=== PATIENT | female | born 1955 | race Caucasian/White ===

== ENCOUNTER 2018-04-13 02:44 | Inpatient (IN) | payer MEDICARE, MEDICAID ==
--- NOTE | 2018-04-13 03:04 | ED ---
Headache - HPI Summary HPI Summary: A 63 y/o F transferred from [facility] presents with "worse HUITRON of her life" onset since noon yesterday. Associated sx: fever, chills, severe nausea. Per transfer report, pt was at [facility], and had blood work and head CT which was negative, her 1st trop was elevated and her 2nd trop was further elevated. At bedside, pt denies CP. She states having had this type HUITRON before but not in a long time. Pt lives in assisted living. - History Of Current Complaint Chief Complaint: EDChestPainROMI Stated Complaint: HEADACHE/WEAKNESS Time Seen by Provider: 04/13/18 02:52 Hx Obtained From: Patient, EMS Onset/Duration: Started days ago - noon yesterday, Still Present Initially Headache Was: "Worst Headache Ever" Timing: Constant Associated Signs And Symptoms: Nausea - severe, Fever, Other (Noted In Comments ) - pos: chills; elevated trop - Allergies/Home Medications Allergies/Adverse Reactions: Allergies Allergy/AdvReac Type Severity Reaction Status Date / Time Beta-Blockers Allergy Unknown Verified 04/13/18 03:45 (Beta-Adrenergic Bloc Reaction Details bupropion Allergy Unknown Verified 04/13/18 03:45 Reaction Details diphenhydramine Allergy Itching Verified 04/13/18 03:46 [From Benadryl] erythromycin base Allergy Unknown Verified 04/13/18 03:45 Reaction Details Estrogens Allergy Unknown Verified 04/13/18 03:45 Reaction Details fentanyl Allergy Unknown Verified 04/13/18 03:45 Reaction Details fluoxetine Allergy Unknown Verified 04/13/18 03:45 Reaction Details midazolam [From Versed] Allergy Itching Verified 04/13/18 03:45 morphine Allergy Hallucinati Verified 04/13/18 03:45 ons nortriptyline Allergy Unknown Verified 04/13/18 03:45 Reaction Details Home Medications: Home Medications Lisinopril TAB* 10 mg PO DAILY 04/13/18 [History Confirmed 04/13/18] PMH/Surg Hx/FS Hx/Imm Hx Previously Healthy: No Cardiovascular History: Reports: Hx Hypertension, Other Cardiovascular Problems/ Disorders - mitral valve prolapse Respiratory History: Reports: Hx Seasonal Allergies GI History: Reports: Hx Gastroesophageal Reflux Disease, Hx Obstructive Bowel Musculoskeletal History: Reports: Hx Fibromyalgia, Hx Scoliosis, Other Musculoskeletal History - spinal stenosis Sensory History: Reports: Hx Contacts or Glasses Opthamlomology History: Reports: Hx Contacts or Glasses Psychiatric History: Reports: Hx Anxiety, Hx Depression, Hx Post Traumatic Stress Disorder - Surgical History Surgery Procedure, Year, and Place: splenectomy, cholectomy, hysterectomy, breast implants with reversal Hx Anesthesia Reactions: No Infectious Disease History: No Infectious Disease History: Denies: Traveled Outside the [place] in Last 30 Days - Family History Known Family History: Positive: Cardiac Disease - CAD - Social History Occupation: Disabled Lives: Assisted Living Alcohol Use: None Substance Use Type: Reports: None Smoking Status (MU): Current Every Day Smoker Type: Cigarettes Review of Systems Positive: Fever, Chills Positive: Other - pos: elevated trop. Negative: Chest Pain Positive: Nausea - severe Positive: Headache All Other Systems Reviewed And Are Negative: Yes Physical Exam - Summary Physical Exam Summary: VITAL SIGNS: Reviewed. GENERAL: Patient is a well-developed and nourished FEMALE who is lying comfortable in the stretcher. Patient is not in any acute respiratory distress. HEAD AND FACE: No signs of trauma. No ecchymosis, hematomas or skull depressions. No sinus tenderness. EYES: PERRLA, EOMI x 2, No injected conjunctiva, no nystagmus. EARS: Hearing grossly intact. Ear canals and tympanic membranes are within normal limits. MOUTH: Oropharynx within normal limits. NECK: Supple, trachea is midline, no adenopathy, no JVD, no carotid bruit, no c- spine tenderness, neck with full ROM. CHEST: Symmetric, no tenderness at palpation LUNGS: Clear to auscultation bilaterally. No wheezing or crackles. CVS: Regular rate and rhythm, S1 and S2 present, no murmurs or gallops appreciated. ABDOMEN: Soft, non-tender. No signs of distention. No rebound no guarding, and no masses palpated. Bowel sounds are normal. EXTREMITIES: FROM in all major joints, no edema, no cyanosis or clubbing. NEURO: Alert and oriented x 3. No acute neurological deficits. Speech is normal and follows commands. SKIN: Dry and warm Triage Information Reviewed: Yes Vital Signs On Initial Exam: Initial Vitals Temp Pulse Resp BP Pulse Ox 99.2 F 71 18 150/92 95 04/13/18 02:48 04/13/18 02:48 04/13/18 02:48 04/13/18 02:48 04/13/18 02:48 Vital Signs Reviewed: Yes Diagnostics - Vital Signs Vital Signs Temp Pulse Resp BP Pulse Ox 04/13/18 02:48 99.2 F 71 18 150/92 95 - Laboratory Result Diagrams: 04/13/18 03:48 04/13/18 03:48 Lab Statement: Any lab studies that have been ordered have been reviewed, and results considered in the medical decision making process. - EKG 02:55 Cardiac Rate: NL - 68 bpm EKG Rhythm: Sinus Rhythm EKG Interpretation: non-specific ST in inferior leads, RBBB Headache Course/Dx - Course Course Of Treatment: Pt is a 63 y/o F transferred from [facility] presenting with "worse HUITRON of her life" onset noon yesterday. Associated sx: fever, chills, severe nausea. Blood work at [place] showed rising troponin, and nml head CT. At bedside, pt denies CP. Pt is refusing spinal tap. I informed pt of the possibility of encephalitis or meningitis and the need for a spinal tap to r/o. She is aware that missing these dx could lead to permanent disability and . - Diagnoses Provider Diagnoses: Elevated troponin, Headache - Physician Notifications Discussed Care Of Patient With: Jose Longo - hospitalist Time Discussed With Above Provider: 03:38 Instructed by Provider To: Other - Requesting repeat labs. Consulted again at 0530, he will admit. Discharge - Sign-Out/Discharge Documenting (check all that apply): Patient Departure - ADM - Discharge Plan Condition: Stable Disposition: ADMITTED TO [facility] Referrals: Keith JEAN,Berna Clark [Primary Care Provider] - - Attestation Statements Document Initiated by Scribe: Yes Documenting Scribe: Annemarie Villasenor Provider For Whom Scribe is Documenting (Include Credential): Dr. Maryan Virgen MD Scribe Attestation: I, Annemarie Villasenor, scribed for Dr. Maryan Virgen MD on 04/13/18 at 0607.
[2018-04-13] MEDS ORDERED: Metoclopramide IV* 5 MG/ML 2 ML VIAL IV SLOW PU ONE (03:22)
[2018-04-13] MEDS ORDERED: Morphine INJ* 2 MG/ML 1 ML SYRINGE (TWO MG - NEW SYRINGE VERSION) IV ONE ×2 (03:23→03:36)
[2018-04-13] MEDS ORDERED: NS 0.9% 1000 ML* 1,000 ML IV ONE (03:23)
[2018-04-13] MEDS ORDERED: diPHENhydraMINE IV* 50 MG/ML 1 ml VIAL (BENADRYL) IV ONE (03:23)
[2018-04-13 04:16] LABS: Hematocrit 34 % (35-47); Hemoglobin 11.2 g/dl (12.0-16.0); Mean Corpuscular HGB Conc 33 g/dl (31-36); Mean Corpuscular Hemoglobin 29 pg (27-31); Mean Corpuscular Volume 88 fL (80-97); Mean Platelet Volume 7.9 um3 (7.4-10.4); Platelet Count 430 10^3/ul (150-450); Red Blood Count 3.89 10^6/ul (4.00-5.40); Red Cell Distribution Width 26 % (10.5-15); White Blood Count 12.4 10^3/ul (3.5-10.8)
[2018-04-13 04:17] LABS: ABS Basophils 0 10^3/ul (0-0.2); ABS Eosinophils 0 10^3/ul (0-0.6); ABS Lymphocytes 1.7 10^3/ul (1.0-4.8); ABS Monocytes 0.8 10^3/ul (0-0.8); ABS Neutrophils 9.9 10^3/ul (1.5-7.7); ABS Nucleated RBC 0 10^3/ul
[2018-04-13 04:20] LABS: EGFR Non-African American 66.2 (>60)
[2018-04-13 05:20] LABS: Eosinophil % 0.1 % (0-6); Lymphocyte % 13.5 % (25-47); Nucleated Red Blood Cells % 0; Schistocytes 1+
--- NOTE | 2018-04-13 05:40 | HP ---
H&P (Free Text) History and Physical: PCP: Bennie Quinones MD Date/Time: 04/13/2018 0545 CC: fever, headache HPI: Mrs Shaikh is a 63YO poor historian HX as below who reports onset of headache, F/C, nausea, and sweats yesterday around noon for which she presented to [place] [facility] and was found to have an elevated troponin. She vomited prior to transport. No source was identified for her fever. She additionally reports diffuse palpitations, abdominal tenderness and has urinary frequency, but denies black, bloody stools, chest pain, SOB, cough, congestion, or other issues. PMedHx upper GI bleed 03/2018 HTN anemia fibromyalgia GERD hepatitis A duodenal ulcer neurogenic bladder PTSD RBBB spinal stenosis splenic rupture Ambulatory Orders ALPRAZolam TAB* 1 mg PO QID 04/04/16 Acetaminophen TAB* [Tylenol TAB*] 325 mg PO Q6HR PRN MDD 1000 mg 04/04/16 Baclofen 20 mg PO BID 04/04/16 Fluticasone NASAL SPRAY 50MCG* 50 mg BOTH NARES BID 04/04/16 Hydrocodone/Acetamin 10/325(NF 10 mg PO Q6HR PRN 04/04/16 Potassium Chlor TAB 20 MEQ* 20 meq PO BID 04/04/16 Protonix 40 mg PO DAILY 04/04/16 Sertraline* 100 mg PO DAILY 04/04/16 Zonisamide 300 mg PO BID 04/04/16 Docusate CAP* [Colace Cap*] 100 mg PO BID PRN #60 cap 04/09/16 Polyethylene Glycol 3350* [Miralax*] 17 gm PO DAILY PRN #30 packet 04/09/16 Senna TAB* [Senokot TAB*] 2 tab PO BEDTIME PRN #60 tab 04/09/16 Lisinopril TAB* 10 mg PO DAILY 04/13/18 Allergies Beta-Blockers (Beta-Adrenergic Bloc Allergy (Verified 04/13/18 03:45) Unknown Reaction Details bupropion Allergy (Verified 04/13/18 03:45) Unknown Reaction Details diphenhydramine [From Benadryl] Allergy (Verified 04/13/18 03:46) Itching erythromycin base Allergy (Verified 04/13/18 03:45) Unknown Reaction Details Estrogens Allergy (Verified 04/13/18 03:45) Unknown Reaction Details fentanyl Allergy (Verified 04/13/18 03:45) Unknown Reaction Details fluoxetine Allergy (Verified 04/13/18 03:45) Unknown Reaction Details midazolam [From Versed] Allergy (Verified 04/13/18 03:45) Itching morphine Allergy (Verified 04/13/18 03:45) Hallucinations nortriptyline Allergy (Verified 04/13/18 03:45) Unknown Reaction Details PSurgHx breast augmentation cholecystectomy hysterectomy & oophorectomy sinus surgery prolapsed rectum repair breast implant removal 2nd rupture appendectomy splenectomy SocHx: quit smoking 2 years ago with ~15PYHX, no alcohol or recreational drugs; lives at [facility]; full code status FamHx: Mother passed at 54 2nd CAD/MA. Father passed at 32 2nd pancreatic CA. One sister has CAD/MA x3. Another sister is reportedly healthy as is her brother. ROS: as above, otherwise reviewed and all were negative vitals: Vital Signs Temp 38.2 C 04/13/18 05:53 Pulse 78 04/13/18 05:50 Resp 14 04/13/18 05:50 BP 153/96 04/13/18 05:50 Pulse Ox 94 04/13/18 05:50 Constitutional: NAD, normally developed, thin white female appearing much older than her reported age HEENM: atraumatic; sclera/conjunctiva: anicteric/clear; hearing: clinically intact; oropharynx: clear, mucosa moist Neck: soft tissue: non-tender, no nuchal rigidity; thyroid: normal Pulmonary: clear to auscultation bilaterally, good aeration, no accessory muscle use CV: RR/RR, normal S1S2, no carotid bruit, no jugular venous distention, 2+ B DP/ PT, no edema Abdominal: soft, non-distended, moderately diffusely tender, no rebound/guarding /rigidity, normoactive bowel sounds, no hepatosplenomegaly or masses, no costovertebral angle tenderness Musculoskeletal: general: grossly intact Integumental: normal appearance and texture Psychiatric orientation: AA&O to PPS affect: calm mood: cooperative eye contact: fair content: seemingly reliable responses: timely insight: fair to good Testing: Lab Results 04/13/18 04/13/18 04/13/18 Range/Units 03:48 03:48 03:48 WBC 12.4 H (3.5-10.8) 10^3/ul RBC 3.89 L (4.00-5.40) 10^6/ul Hgb 11.2 L (12.0-16.0) g/dl Hct 34 L (35-47) % MCV 88 (80-97) fL MCH 29 (27-31) pg MCHC 33 (31-36) g/dl RDW 26 H (10.5-15) % Plt Count 430 (150-450) 10^3/ul MPV 7.9 (7.4-10.4) um3 Neut % (Auto) 79.8 (38-83) % Lymph % (Auto) 13.5 L (25-47) % [place] % (Auto) 6.3 (0-7) % Eos % (Auto) 0.1 (0-6) % Baso % (Auto) 0.3 (0-2) % Absolute Neuts (auto) 9.9 H (1.5-7.7) 10^3/ul Absolute Lymphs (auto) 1.7 (1.0-4.8) 10^3/ul Absolute Monos (auto) 0.8 (0-0.8) 10^3/ul Absolute Eos (auto) 0 (0-0.6) 10^3/ul Absolute Basos (auto) 0 (0-0.2) 10^3/ul Absolute Nucleated RBC 0 10^3/ul Nucleated RBC % 0 Stomatocytes 1+ Schistocytes 1+ Hem Pathologist Commnt Pending Sodium 137 (135-145) mmol/L Potassium 3.4 L (3.5-5.0) mmol/L Chloride 103 (101-111) mmol/L Carbon Dioxide 26 (22-32) mmol/L Anion Gap 8 (2-11) mmol/L BUN 16 (6-24) mg/dL Creatinine 0.86 (0.51-0.95) mg/dL Est GFR ( Amer) 80.1 (>60) Est GFR (Non-Af Amer) 66.2 (>60) BUN/Creatinine Ratio 18.6 (8-20) Glucose 110 H (70-100) mg/dL Lactic Acid 1.1 (0.5-2.0) mmol/L Calcium 9.3 (8.6-10.3) mg/dL Magnesium 1.9 (1.9-2.7) mg/dL Total Bilirubin 0.30 (0.2-1.0) mg/dL AST 18 (13-39) U/L ALT 9 (7-52) U/L Alkaline Phosphatase 75 (34-104) U/L Troponin I 0.07 H* (<0.04) ng/mL Total Protein 7.6 (6.4-8.9) g/dL Albumin 4.0 (3.2-5.2) g/dL Globulin 3.6 (2-4) g/dL Albumin/Globulin Ratio 1.1 (1-3) ECG, personally reviewed: NSR rate 68, no ischemia CXR, personally reviewed: ordered, pending Impression: 63F presents with SIRS (fever, tachypnea, & leukocytosis) suspected 2nd abdominal source, work up in progress DIAGNOSIS & PLAN Primary SIRS (fever, tachypnea, & leukocytosis) suspected 2nd abdominal source : obtain CT abd/pel WO : UA at [place] [facility] was negative : blood CXs : empiric ciprofloxacin & metronidazole : IVFs : supportive care Admission Rational: Inpatient as without the above interventions the risk of impending adverse outcome is unacceptably high; inappropriate for the outpatient setting DVTp: heparin SQ Code Status: full HCP: daughter, Bette Gunn
[2018-04-13] MEDS ORDERED: Melatonin 3 MG TAB PO PRN (06:01)
[2018-04-13] MEDS ORDERED: Acetaminophen TAB* 325 MG PO PRN (06:01)
[2018-04-13] MEDS ORDERED: Ondansetron ODT TAB* 4 MG PO PRN (06:02)
[2018-04-13] MEDS ORDERED: Polyethylene Glycol 3350* 17 GM PACKET PO PRN (06:07)
[2018-04-13] MEDS ORDERED: Hydrocodone/Acetamin 10/325 1 TAB PO PRN ×2 (06:07→08:43)
[2018-04-13] MEDS ORDERED: Senna TAB PO PRN (06:07)
[2018-04-13] MEDS ORDERED: NS 0.9% 1000 ML* 1,000 ML IV SCH (06:15)
[2018-04-13 06:47] LABS: ABS Basophils 0.1 10^3/ul (0-0.2); ABS Eosinophils 0 10^3/ul (0-0.6); ABS Lymphocytes 1.5 10^3/ul (1.0-4.8); ABS Monocytes 0.7 10^3/ul (0-0.8); ABS Neutrophils 12.6 10^3/ul (1.5-7.7); ABS Nucleated RBC 0 10^3/ul; Hematocrit 33 % (35-47); Hemoglobin 10.7 g/dl (12.0-16.0); Mean Corpuscular HGB Conc 33 g/dl (31-36); Mean Corpuscular Hemoglobin 28 pg (27-31); Mean Corpuscular Volume 86 fL (80-97); Mean Platelet Volume 7.8 um3 (7.4-10.4); Platelet Count 400 10^3/ul (150-450); Red Blood Count 3.83 10^6/ul (4.00-5.40); Red Cell Distribution Width 25 % (10.5-15); White Blood Count 14.9 10^3/ul (3.5-10.8)
--- NOTE | 2018-04-13 06:52 | RAD ---
EXAM: CT Abdomen and Pelvis Without Intravenous Contrast CLINICAL HISTORY: 63 years old, female; Pain; Abdominal pain; Generalized; Additional info: Abdominal pain, sirs TECHNIQUE: Axial computed tomography images of the abdomen and pelvis without intravenous contrast. All CT scans at this facility use at least one of these dose optimization techniques: automated exposure control; mA and/or kV adjustment per patient size (includes targeted exams where dose is matched to clinical indication); or iterative reconstruction. COMPARISON: CT ABD&PELV W/CONTRAST 04/03/2016 10:54 AM FINDINGS: Lung bases: There is elevation of the right hemidiaphragm. Minimal infiltrate or atelectatic changes are seen at the right lung base. Heart: Coronary artery calcifications are noted. Mediastinum: There is a small hiatus hernia noted. ABDOMEN: Liver: See below. Gallbladder and bile ducts: The patient is status post cholecystectomy. Small amount of air is identified within a few of the biliary ducts and the left lobe of the liver. Pancreas: The pancreas is not well-visualized. Spleen: The spleen is not definitely identified. Adrenals: Unremarkable. No mass. Kidneys and ureters: There is a nonobstructing 2 mm calculus in the lower pole of the right kidney. Stomach and bowel: Unremarkable. No obstruction. No mucosal thickening. PELVIS: Appendix: The appendix is not clearly delineated. Bladder: Unremarkable. No stones. Reproductive: The patient is status post hysterectomy. ABDOMEN and PELVIS: Intraperitoneal space: Unremarkable. No free air. No significant fluid collection. Bones/joints: There is dextroscoliosis of the lumbar spine, unchanged from the previous study. There is bilateral spondylolysis involving L5. Multilevel degenerative disc disease is noted. No acute fracture. No dislocation. Soft tissues: Unremarkable. Vasculature: Arteriosclerotic changes are identified. No abdominal aortic aneurysm. Lymph nodes: Unremarkable. No enlarged lymph nodes. IMPRESSION: Dextroscoliosis of the lumbar spine with degenerative change. Minimal infiltrate or atelectatic changes in the right lower lobe. Coronary artery calcifications. Cholecystectomy. Pneumobilia. Nonobstructing right renal calculus. Small hiatus hernia. The spleen is not definitely identified. Hysterectomy.
[2018-04-13 07:39] LABS: Eosinophil % 0 % (0-6); Lymphocyte % 9.9 % (25-47); Nucleated Red Blood Cells % 0
[2018-04-13 08:12] LABS: INR 1.07 (0.77-1.02)
[2018-04-13] MEDS: Ciprofloxacin IV(*) 400 MG in D5W 250 ML BAG* 160 ML IVPB SCH ×2 (08:24→20:56)
[2018-04-13] MEDS: Lisinopril TAB* 10 MG PO SCH (08:45)
[2018-04-13] MEDS: Baclofen TAB* 20 MG PO SCH ×2 (08:47→20:56)
[2018-04-13] MEDS: ALPRAZolam TAB* 0.5 MG PO SCH ×4 (08:48→20:44)
[2018-04-13] MEDS ORDERED: Potassium Chlor TAB* 20 MEQ TAB.ER PO SCH (09:00)
[2018-04-13] MEDS ORDERED: PROTONIX 40 MG PO SCH (09:00)
[2018-04-13] MEDS: metroNIDAZOLE IV 500 MG/100ML* 500 MG/100 ML BAG IVPB SCH ×2 (09:52→15:47)
[2018-04-13] MEDS: NS 0.9% 1000 ML* 1,000 ML IV SCH ×2 (09:53→12:23)
--- NOTE | 2018-04-13 09:58 | PN ---
Subjective Date of Service: 04/13/18 Interval History: Headache persists, started noon 04/12. Abd pain since admission to [facility] ; patient states she got 3 U blood there but never had EGD. Too nauseated to eat. No relief with ondansetron ODT. Objective Active Medications: Alprazolam (Xanax Tab*) 1 mg PO QID [facility] Last Admin: 04/13/18 08:48 Dose: Not Given Baclofen (Lioresal Tab*) 20 mg PO BID [facility] Last Admin: 04/13/18 08:47 Dose: 20 mg Heparin Sodium (Porcine) (Heparin Vial(*)) 5,000 units SUBCUT Q8HR [facility] Ciprofloxacin 400 mg/ Dextrose 200 mls @ 200 mls/hr IVPB Q12H [facility] Last Admin: 04/13/18 08:24 Dose: 200 mls/hr Metronidazole/Sodium Chloride (Flagyl 500 Mg Ivpb*) 500 mg in 100 mls @ 100 mls /hr IVPB Q8H [facility] Sodium Chloride (Ns 0.9% 1000 Ml*) 1,000 mls @ 0 mls/hr IV WIDE OPEN [facility] Stop: 04/14/18 06:16 Potassium Chloride/Dextrose (D5w 1/2 Ns Kcl 20 Meq 1000 Ml*) 1,000 mls @ 100 mls/hr IV PER RATE [facility] Potassium Chloride/Dextrose (D5w 1/2 Ns Kcl 20 Meq 1000 Ml*) 1,000 mls @ 100 mls/hr IV PER RATE [facility] Lisinopril (Prinivil Tab*) 10 mg PO DAILY [facility] Last Admin: 04/13/18 08:45 Dose: 10 mg Omeprazole (Prilosec Cap*) 20 mg PO DAILY@0600 [facility] Oxycodone HCl (Roxycodone Tab*) 5 mg PO Q4H PRN PRN Reason: PAIN Polyethylene Glycol/Electrolytes (Miralax*) 17 gm PO DAILY PRN PRN Reason: CONSTIPATION Senna (Senokot Tab*) 2 tab PO BEDTIME PRN PRN Reason: CONSTIPATION Sertraline HCl (Zoloft*) 100 mg PO DAILY [facility] Trimethobenzamide HCl (Tigan Cap*) 300 mg PO QID [facility] Zonisamide (Zonegran (Nf)) 300 mg PO BID [facility] Vital Signs - 8 hr 04/13/18 04/13/18 04/13/18 02:48 02:50 02:51 Temperature 99.2 F Pulse Rate 71 68 Respiratory 18 Rate Blood Pressure 150/92 150/92 (mmHg) O2 Sat by Pulse 95 93 Oximetry 04/13/18 04/13/18 04/13/18 03:00 03:20 03:36 Temperature Pulse Rate 79 66 Respiratory 10 9 18 Rate Blood Pressure 145/86 (mmHg) O2 Sat by Pulse 94 94 Oximetry 04/13/18 04/13/18 04/13/18 03:37 03:50 04:00 Temperature Pulse Rate 67 71 Respiratory 18 17 21 Rate Blood Pressure 163/91 (mmHg) O2 Sat by Pulse 98 96 Oximetry 04/13/18 04/13/18 04/13/18 04:20 04:43 04:50 Temperature Pulse Rate 75 76 76 Respiratory 23 23 24 Rate Blood Pressure 178/101 172/107 165/95 (mmHg) O2 Sat by Pulse 93 94 93 Oximetry 04/13/18 04/13/18 04/13/18 05:00 05:20 05:50 Temperature Pulse Rate 79 75 78 Respiratory 24 24 14 Rate Blood Pressure 150/87 153/96 (mmHg) O2 Sat by Pulse 91 91 94 Oximetry 04/13/18 04/13/18 04/13/18 05:53 06:00 06:59 Temperature 100.8 F 100.0 F Pulse Rate 76 84 Respiratory 21 18 Rate Blood Pressure 109/64 (mmHg) O2 Sat by Pulse 91 98 Oximetry 04/13/18 04/13/18 07:07 08:48 Temperature 100.6 F Pulse Rate 74 Respiratory 22 16 Rate Blood Pressure 141/81 (mmHg) O2 Sat by Pulse 94 Oximetry Oxygen Devices in Use Now: None Appearance: Alert, supine in bed. In fair spirits. Looks comfortable at rest. Eyes: No Scleral Icterus Respiratory: Symmetrical Chest Expansion and Respiratory Effort, Clear to Auscultation, Clear to Percussion Cardiovascular: NL Sounds; No Murmurs; No JVD, RRR, No Edema Abdominal: No Hepatosplenomegaly, - - Soft, nl BS, mod diffusely tender. No masses or organomegaly. Extremities: No Edema, No Clubbing, Cyanosis, - Skin: No Rash or Ulcers, No Nodules or Sclerosis, - - Skin both lower legs wrinkled Neurological: Alert and Oriented x 3, NL Sensation Result Diagrams: 04/13/18 06:18 04/13/18 03:48 Assess/Plan/Problems-Billing Assessment: - Patient Problems (1) Fever Current Visit: Yes Status: Acute Code(s): R50.9 - FEVER, UNSPECIFIED SNOMED Code(s): 884654127 Comment: Leukocytosis, high CRP recently. Continue cipro/metro. Blood C&S PRN T>=101. Addon CRP pending. (2) HTN (hypertension) Current Visit: No Status: Chronic Code(s): I10 - ESSENTIAL (PRIMARY) HYPERTENSION SNOMED Code(s): 72922669 Comment: Continue lisinopril. (3) Anemia Current Visit: Yes Status: Acute Code(s): D64.9 - ANEMIA, UNSPECIFIED SNOMED Code(s): 401219659 Comment: Records requested from [facility]. Note nl iron studies, B12, folate 2017. (4) Spinal stenosis Current Visit: Yes Status: Acute Code(s): M48.00 - SPINAL STENOSIS, SITE UNSPECIFIED SNOMED Code(s): 66918050 Comment: Oxycodone prn. Avoid APAP while evaluating her fever. (5) Nausea Current Visit: Yes Status: Acute Code(s): R11.0 - NAUSEA SNOMED Code(s): 122892170 Comment: Schedule trimethobenzamide ordered.
[2018-04-13] MEDS ORDERED: D5W 1/2 NS KCl 20 Meq 1000 ML* 1,000 ML IV SCH ×2 (10:00)
[2018-04-13] MEDS: oxyCODONE TAB* 5 MG TAB PO PRN ×3 (10:35→22:22)
[2018-04-13] MEDS: Trimethobenzamide CAP* 300 MG PO SCH ×4 (10:36→20:57)
[2018-04-13] MEDS: CMC:Zonisamide (NF) 50 MG CAP PO SCH ×2 (10:37→20:56)
[2018-04-13] MEDS: Sertraline* 100 MG TAB PO SCH (10:39)
[2018-04-13] MEDS: Acetaminophen TAB* 325 MG PO PRN ×2 (13:18→22:21)
[2018-04-13] MEDS: D5W 1/2 NS KCl 20 Meq 1000 ML* 1,000 ML IV SCH (13:38)
[2018-04-14] MEDS: metroNIDAZOLE IV 500 MG/100ML* 500 MG/100 ML BAG IVPB SCH ×3 (00:45→17:49)
[2018-04-14] MEDS: Omeprazole CAP* 20 MG PO SCH (05:21)
[2018-04-14] MEDS: Heparin VIAL(*) 5000 UNITS/ML VIAL (FIVE THOUSAND) SUBCUT SCH ×3 (05:21→21:46)
[2018-04-14] MEDS: Ciprofloxacin IV(*) 400 MG in D5W 250 ML BAG* 160 ML IVPB SCH ×2 (07:25→21:46)
[2018-04-14] MEDS: oxyCODONE TAB* 5 MG TAB PO PRN ×3 (07:31→21:46)
[2018-04-14] MEDS: Trimethobenzamide CAP* 300 MG PO SCH ×4 (08:32→21:43)
[2018-04-14] MEDS: Baclofen TAB* 20 MG PO SCH ×2 (08:33→21:42)
[2018-04-14] MEDS: Sertraline* 100 MG TAB PO SCH (08:33)
[2018-04-14] MEDS: Lisinopril TAB* 10 MG PO SCH (08:34)
[2018-04-14] MEDS: ALPRAZolam TAB* 0.5 MG PO SCH ×3 (08:35→17:55)
[2018-04-14] MEDS: CMC:Zonisamide (NF) 50 MG CAP PO SCH ×2 (08:35→21:45)
--- NOTE | 2018-04-14 12:36 | PN ---
Subjective Date of Service: 04/14/18 Interval History: Headache improved today. Patient reports having much drainage from her sinuses last evening. C/O abdominal pain, nausea but also requests a meal. Objective Active Medications: Acetaminophen (Tylenol Tab*) 650 mg PO Q4H PRN PRN Reason: PAIN Last Admin: 04/13/18 22:21 Dose: 650 mg Alprazolam (Xanax Tab*) 1 mg PO QID [facility] Last Admin: 04/14/18 12:13 Dose: Not Given Baclofen (Lioresal Tab*) 20 mg PO BID [facility] Last Admin: 04/14/18 08:33 Dose: 20 mg Heparin Sodium (Porcine) (Heparin Vial(*)) 5,000 units SUBCUT Q8HR [facility] Last Admin: 04/14/18 05:21 Dose: Not Given Ciprofloxacin 400 mg/ Dextrose 200 mls @ 200 mls/hr IVPB Q12H [facility] Last Admin: 04/14/18 07:25 Dose: 200 mls/hr Metronidazole/Sodium Chloride (Flagyl 500 Mg Ivpb*) 500 mg in 100 mls @ 100 mls /hr IVPB Q8H [facility] Last Admin: 04/14/18 08:29 Dose: 100 mls/hr Potassium Chloride/Dextrose (D5w 1/2 Ns Kcl 20 Meq 1000 Ml*) 1,000 mls @ 100 mls/hr IV PER RATE [facility] Last Admin: 04/13/18 13:38 Dose: 100 mls/hr Lisinopril (Prinivil Tab*) 10 mg PO DAILY [facility] Last Admin: 04/14/18 08:34 Dose: 10 mg Omeprazole (Prilosec Cap*) 20 mg PO DAILY@0600 [facility] Last Admin: 04/14/18 05:21 Dose: 20 mg Ondansetron HCl (Zofran Odt Tab*) 4 mg PO Q6H PRN PRN Reason: n/v Oxycodone HCl (Roxycodone Tab*) 5 mg PO Q4H PRN PRN Reason: PAIN Last Admin: 04/14/18 07:31 Dose: 5 mg Polyethylene Glycol/Electrolytes (Miralax*) 17 gm PO DAILY PRN PRN Reason: CONSTIPATION Senna (Senokot Tab*) 2 tab PO BEDTIME PRN PRN Reason: CONSTIPATION Sertraline HCl (Zoloft*) 100 mg PO DAILY [facility] Last Admin: 04/14/18 08:33 Dose: 100 mg Trimethobenzamide HCl (Tigan Cap*) 300 mg PO QID [facility] Last Admin: 04/14/18 12:14 Dose: 300 mg Zonisamide (Zonegran (Nf)) 300 mg PO BID [facility] Last Admin: 04/14/18 08:35 Dose: 300 mg Vital Signs - 8 hr 04/14/18 04/14/18 04/14/18 07:31 07:53 08:00 Temperature 98.3 F Pulse Rate 62 Respiratory 16 18 18 Rate Blood Pressure 137/72 (mmHg) O2 Sat by Pulse 95 Oximetry 04/14/18 04/14/18 10:04 10:56 Temperature 97.9 F Pulse Rate 59 Respiratory 16 20 Rate Blood Pressure 129/69 (mmHg) O2 Sat by Pulse 96 Oximetry Oxygen Devices in Use Now: None Appearance: Alert, supine in bed. In fair spirits. Looks comfortable. Eyes: No Scleral Icterus Abdominal: No Hepatosplenomegaly, - - Mild diffuse abdominal tenderness. Abd scaphoid. No mass. Nl BS. Extremities: No Edema, No Clubbing, Cyanosis, - Skin: No Rash or Ulcers, No Nodules or Sclerosis, - - both lower legs wrinkled. Neurological: Alert and Oriented x 3, NL Sensation Result Diagrams: 04/13/18 06:18 04/13/18 03:48 Microbiology and Other Data: Microbiology 04/13/18 06:47 Aerobic Blood Culture - Preliminary Blood Venous No Growth Day 1 Anaerobic Blood Culture - Preliminary No Growth Day 1 Assess/Plan/Problems-Billing Assessment: - Patient Problems (1) Fever Current Visit: Yes Status: Acute Code(s): R50.9 - FEVER, UNSPECIFIED SNOMED Code(s): 319425308 Comment: Leukocytosis, high CRP recently. Continue cipro/metro. Blood C&S x 1 on 04/13 no growth day 1. Addon CRP 85 on 04/13, down from 213 on 04/03. Repeat CBC, CRP 04/15. ?? sinusitis. Note CT brain 04/12 at [place] was unremarkable, including the visulaized sinuses. (2) HTN (hypertension) Current Visit: No Status: Chronic Code(s): I10 - ESSENTIAL (PRIMARY) HYPERTENSION SNOMED Code(s): 72623534 Comment: Continue lisinopril. (3) Anemia Current Visit: Yes Status: Acute Code(s): D64.9 - ANEMIA, UNSPECIFIED SNOMED Code(s): 823648210 Comment: Records received from [facility]. Note nl iron studies, B12, folate 2017. EGD requested. Pt had barium swallow at [facility], 2 U PC's. (4) Spinal stenosis Current Visit: Yes Status: Acute Code(s): M48.00 - SPINAL STENOSIS, SITE UNSPECIFIED SNOMED Code(s): 24770615 Comment: Oxycodone prn. Avoid APAP while evaluating her fever. (5) Nausea Current Visit: Yes Status: Acute Code(s): R11.0 - NAUSEA SNOMED Code(s): 224406220 Comment: Continue scheduled trimethobenzamide.
[2018-04-14] MEDS ORDERED: Meperidine Carpuject* 75 MG/ML CARPUJECT SYRINGE IV ONE ×2 (14:00→16:00)
[2018-04-14] MEDS ORDERED: Midazolam* 1 MG/ML 10 ML VIAL (10 MG) ONE (14:41)
[2018-04-14] MEDS ORDERED: fentaNYL* 50 MCG/ML 2 ML VIAL (100 MCG VIAL) ONE (14:41)
--- NOTE | 2018-04-14 16:02 | ECHO ---
Patient: SYDNEY ZIEGLER [facility] Rec#: [id number] : 1955 Date: 04/14/2018 Age: 63y Height: 157 cm / 61.8 in Weight: 46 kg / 101.4 lbs Sex: F BSA: 1.4 Room#: [facility] Admit Date#: 04/13/2018 Type: Inpatient Referring: Aki Galarza MD Reading: Alexis Medina MD Agent Broker: Tete Schwab RN RDCS CC: Berna aPrker MD Transthoracic Echocardiogram Indication: Elevated troponin level, sepsis BP: 116/66 HR: 59 Rhythm: Bradycardia Findings History: HTN, RBBB, former smoker, UGI bleed, anemia, scoliosis, spinal stenosis Technical Comments: The study quality is fair. The study is technically limited due to the patient's smoking history. Left Ventricle: The left ventricular chamber size is normal. Mild concentric left ventricular hypertrophy is observed. There is increased basal septal hypertrophy noted without evidence of an increased gradient across the left ventricular outflow tract. Global left ventricular wall motion and contractility are within normal limits. There is normal left ventricular systolic function. The estimated ejection fraction is 60-65%. There is a left ventricular septal wall motion abnormality observed, possibly due to the presence of a right bundle branch block. There is no consistent Doppler evidence of clinically significant diastolic dysfunction. Left Atrium: The left atrial chamber size is normal. Right Ventricle: The right ventricular chamber size and systolic function are within normal limits. Right Atrium: The right atrium is mildly dilated. Aortic Valve: The aortic valve is trileaflet. The aortic valve leaflets are mildly thickened. There is aortic annular calcification. There is no evidence of aortic regurgitation. There is no evidence of aortic stenosis. Mitral Valve: The mitral valve leaflets are mildly thickened. There is a trace of mitral regurgitation. There is no evidence of mitral stenosis. Tricuspid Valve: The tricuspid valve leaflets are normal. There is trace tricuspid regurgitation. Unable to estimate the right ventricular systolic pressure. There is no tricuspid stenosis. Pulmonic Valve: The pulmonic valve appears normal in structure and function. There is mild to moderate pulmonic regurgitation. There is no pulmonic stenosis. Pericardium: There is no significant pericardial effusion. Aorta: There is mild dilatation of the ascending aorta. There is no dilatation of the aortic arch. There is no dilation of the aortic root. Pulmonary Artery: The main pulmonary artery is not well visualized. Venous: The inferior vena cava appears normal in size. There is a greater than 50% respiratory change in the inferior vena cava dimension. Summary: There are changes noted when compared to the previous study done on 04/04/2016, there is increase in PI from trace then. Asneding aorta was not visualized then. Conclusions The left ventricular chamber size is normal. Mild concentric left ventricular hypertrophy is observed. There is increased basal septal hypertrophy noted without evidence of an increased gradient across the left ventricular outflow tract. The estimated ejection fraction is 60-65%. There is a left ventricular septal wall motion abnormality observed, possibly due to the presence of a right bundle branch block. There is no consistent Doppler evidence of clinically significant diastolic dysfunction. The right atrium is mildly dilated. There is a trace of mitral regurgitation. There is trace tricuspid regurgitation. There is mild to moderate pulmonic regurgitation. There is mild dilatation of the ascending aorta. There are changes noted when compared to the previous study done on 04/04/2016, there is increase in PI from trace then. Asneding aorta was not visualized then. Measurements Name Value Normal Range RVIDd (AP) 2D 2.8 cm (0.9 - 2.6) RAd ISD 4CH 5.2 cm (3.4 - 4.9) RA (A4C)W 3.7 cm (2.9 - 4.6) IVSd (2D) 1.2 cm (0.6 - 1) LVPWd (2D) 1.2 cm (0.6 - 1) LVIDd (2D) 4.5 cm (3.6 - 5.4) LVIDs (2D) 3.1 cm - LV FS (2D) 31 % (25 - 45) Aortic Annulus 2 cm (1.4 - 2.6) Ao root diameter (2D) 3.5 cm (2.1 - 3.5) Ascending Ao 3.8 cm (2.1 - 3.4) Aortic arch 2.5 cm (1.8 - 3.4) LA dimension (AP) 2D 3.1 cm (2.3 - 3.8) LAd ISD 4CH 4.6 cm (2.9 - 5.3) LA ISD 4CH W 4.1 cm (2.5 - 4.5) Name Value Normal Range LA ESV SP 4CH (A/L) 40 ml - LA ESV SP 2CH (A/L) 34 ml - LA ESV BP (A/L) 40 ml - LA ESV BP (A/L) index 28 ml/m2 - LA ESV SP 4CH (MOD) 36 ml - LA ESV SP 2CH (MOD) 31 ml - Name Value Normal Range MV E-wave Vmax 0.66 m/sec - MV deceleration time 278 msec - MV A-wave Vmax 0.82 m/sec - MV E:A ratio 0.8 ratio - LV septal e' Vmax 0.08 m/sec - LV lateral e' Vmax 0.07 m/sec - LV E:e' septal ratio 8.3 ratio - LV E:e' lateral ratio 9.4 ratio - Name Value Normal Range AV Vmax 1.5 m/sec - AV VTI 34 cm - AV peak gradient 9.5 mmHg - AV mean gradient 5.7 mmHg - LVOT Vmax 1.1 m/sec - LVOT VTI 22.7 cm - LVOT peak gradient 5 mmHg - LVOT mean gradient 3 mmHg - HERMINIA Vmax 0.53 m/sec - Name Value Normal Range IVC diameter 1.8 cm - Name Value Normal Range PV Vmax 0.84 m/sec -
--- NOTE | 2018-04-14 21:34 | CONS ---
GASTROENTEROLOGY CONSULT: DATE OF CONSULT: 04/14/18 CONSULTING PHYSICIANS: Dmitri Galarza MD; Berna Parker MD, [place]. REASON FOR CONSULT: Burning upper abdominal pain with a history of microcytic anemia diagnosed at [facility], 02/02/18, with hemoglobin 6.1, MCV 69 at that time. HISTORY OF PRESENT ILLNESS: This 63-year-old woman came to the hospital yesterday complaining of a headache. There was question of fever and her white count was up and a severe infection was considered. Clinical exam and CT scan did not document a source and she has remained afebrile. She has been covered with Cipro and Flagyl. Complaints of headache have faded, but she does continue to complain of epigastric pain. She has a long history of headaches and she was admitted to [facility] on 02/02 with headache. It was felt to be migrainous in pattern. She was found to be anemic and was transfused 3 units of blood, her first ever. After 2-1/2 weeks, she was transferred to [facility] and was not transferred back to her extended care facility ([facility]) until 03/06/18. While at [facility], she apparently had no cardiac damage demonstrated by noninvasive means, no sign of acute or chronic GI bleeding as she had a negative upper GI barium study and 2 stools for occult blood were said to be negative. She is a slow historian, but is able to enumerate a fair number of important facts. She says at [facility], she normally eats a regular diet. She had been on Nexium in the remote past and recalls being switched to Protonix and then Prilosec. At discharge in April 2016 from this hospital, she was on Protonix 40 mg and on admission yesterday was still listed , though there is some uncertainty. She denies taking any NSAIDs and multiple trade names were mentioned. She is on iron ever since the January 2018 admission and says she had never been on iron before. She says several prior colonoscopies have been negative, most recently around 2007 in [place]. PAST MEDICAL HISTORY: 1. Fibromyalgia. 2. Chronic pain syndrome. 3. PTSD - details not elicited. 4. Neurogenic bladder. 5. Right bundle branch block. 6. Spinal stenosis. 7. Status post splenectomy. 8. Status post cholecystectomy and repeated ERCPs done in [place] and no details available. 9. History of breast augmentation. 10. History of hysterectomy and oophorectomy. 11. Appendectomy - incidental. 12. Breast implant removals. 13. Prolapsed rectal repair. 14. Chronic migraine headaches. MEDICATIONS: Outpatient meds include: 1. Baclofen. 2. Zonisamide. 3. Hydrocodone. 4. Alprazolam. 5. Sertraline. 6. Protonix. 7. Lisinopril. 8. MiraLAX. ALLERGIES: She specifies that although MIDAZOLAM she feels causes itching, she actually finds it quite effective and is willing to take it. She has had it numerous times since first wondering about the itching. There has never been any bronchospasm or hives. In the past, Demerol and Dilaudid have been effective for her. There are about 10 allergies and none she can reference as causing any cardiorespiratory collapse. SOCIAL HISTORY: She has been in [facility] because of a variety of chronic issues since 2013. She has 4 daughters, 3 in [place] and 1 living in [place] who she sees about twice a year. 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 REVIEW OF SYSTEMS: No history of palpitations, syncope, NE, hemoptysis, TB, lung mass, acute hepatitis, chronic pancreatic disease. Her last colonoscopy was in 2007. No history of psoriasis or hives. DIAGNOSTIC STUDIES/LAB DATA: On admission here, hemoglobin 11.2, hematocrit 34 , MCV 88, platelets 430,000. BUN 16, creatinine 0.86. LFTs normal. Albumin 4.0. CRP 82.5 (was 214 on 04/03/16). CT report - documents the absence of multiple organs, but does not find any thickening, stranding, or suggestion of a fluid collection or inflammation. There is mild pneumobilia. IMPRESSION: This 63-year-old woman complains of acid peptic like abdominal pain. This is unanticipated given apparently a reliable steady use of a PPI and no use of NSAIDs. She does not give the typical history of mesenteric ischemia , though that will need to be entertained if endoscopy is negative. Endoscopy is also indicated to work up microcytic anemia which was never explained during her January 2018 admission to [facility]. If upper endoscopy is negative, colonoscopy certainly sounds warranted. Heme-negative stool does not completely rule out a slow right colonic contribution to iron deficiency. [id number]/[facility] #: [id number] HELEN HAYES HOSPITALSusana
--- NOTE | 2018-04-14 23:24 | PRO ---
DATE: 04/14/18 - ROOM #444 REFERRING PHYSICIANS: Dr. Berna Parker, Dr. Dmitri Galarza.* PROCEDURE: Upper gastrointestinal endoscopy and gastric CLOtest and biopsy of friable gastric fundus. INDICATION: This 63-year-old woman presented with a headache, but was noted to have a moderate anemia while taking iron in the last 7 to 8 weeks. She also complained of upper abdominal pain. She had a history of past duodenal ulcer disease, but has not been taking NSAIDs. The procedure was clarified that she does not have any particular trouble taking Versed and indeed has used it for multiple procedures and is quite pleased with it, although at one time she thought may be there was some itching. Those circumstances were complex involving multiple other medications. She specifically said the Demerol had worked well for her and that was obtained from the pharmacy. ENDOSCOPIST: Dr. White. MEDICATIONS: Midazolam 8.5, meperidine 75. FINDINGS: She is a chronically ill-appearing woman, underweight, little bit of temporal wasting. She was in no acute distress. She was positioned on her side and consciousness sedation administered. She had a pattern of losing focus and becoming inattentive, but still being able to converse and then fell asleep during the procedure. Overall, she tolerated the moderate sedation very well. EGD: Larynx - not seen. Esophagus - easily entered. The mucosa is normal in the upper and mid esophagus. The lower esophagus has some adherent cakes of medication debris. It does not appear to be iron in nature, but otherwise, the specific medications could not be identified. There is a slight ring at 39 cm. There are no deep erosions, but some patchy erythema in the distal cm or 2 of esophagus. There has been a small to moderate hiatal hernia. Stomach - erythema and punctate gastritis with wispy bleeding from the gastric fundus high up and in the cardia. It is moderately severe in the small area. The distal fundus, body, and antrum appear normal. There are no erosions in the lower two-thirds of the stomach. Duodenum - the pylorus, bulb, and second through fourth portions appear normal. There was no bleeding there and no particular deformity. At the time of withdrawal, a CLOtest was taken of the gastric body. Two biopsies were taken from the gastritic area in the high fundus. IMPRESSION: 1. Small to moderate hiatal hernia. 2. History of gastroesophageal reflux disease - supported by the hiatal hernia findings. We will continue Protonix. 3. Gastritis - suspecte secondary to medication and pills layering out high in the fundus could do this. Her iron could be reduced to Friday, Friday, and Friday. It clearly appears to be relieving her anemia. 4. Esophagitis - appears to have components of acoustic nature and she should try to crush the pills and take them with increased amounts of water or as elixirs. 5. History of duodenal ulcer disease - cannot confirm and indeed the pyloroduodenal segment appears very normal without any scarring, whatsoever. 6. Iron-deficiency anemia - probably multifactorial. Digital rectal revealed no stool today and so, no further specimens could be obtained. Further stools for occult blood would be of interest. [id number] #: [id number] MTDD
[2018-04-15] MEDS: metroNIDAZOLE IV 500 MG/100ML* 500 MG/100 ML BAG IVPB SCH ×3 (02:00→18:06)
[2018-04-15] MEDS: ALPRAZolam TAB* 0.5 MG PO SCH ×5 (02:34→21:24)
[2018-04-15] MEDS: oxyCODONE TAB* 5 MG TAB PO PRN ×4 (02:34→21:23)
[2018-04-15] MEDS: Ondansetron ODT TAB* 4 MG PO PRN ×3 (02:42→16:25)
[2018-04-15] MEDS: Heparin VIAL(*) 5000 UNITS/ML VIAL (FIVE THOUSAND) SUBCUT SCH ×3 (06:08→21:24)
[2018-04-15] MEDS: Omeprazole CAP* 20 MG PO SCH (06:08)
[2018-04-15 06:58] LABS: Hematocrit 33 % (35-47); Hemoglobin 10.8 g/dl (12.0-16.0); Mean Corpuscular HGB Conc 33 g/dl (31-36); Mean Corpuscular Hemoglobin 29 pg (27-31); Mean Corpuscular Volume 88 fL (80-97); Mean Platelet Volume 8.7 um3 (7.4-10.4); Platelet Count 333 10^3/ul (150-450); Red Blood Count 3.76 10^6/ul (4.00-5.40); Red Cell Distribution Width 25 % (10.5-15); White Blood Count 9.9 10^3/ul (3.5-10.8)
[2018-04-15 07:33] LABS: EGFR Non-African American 78.8 (>60)
[2018-04-15] MEDS: Ciprofloxacin IV(*) 400 MG in D5W 250 ML BAG* 160 ML IVPB SCH (08:49)
[2018-04-15] MEDS: Baclofen TAB* 20 MG PO SCH ×2 (08:50→21:24)
[2018-04-15] MEDS: Lisinopril TAB* 10 MG PO SCH (08:51)
[2018-04-15] MEDS: Ferrous Sulfate TAB* 325 MG PO SCH (08:51)
[2018-04-15] MEDS: Sertraline* 100 MG TAB PO SCH (08:52)
[2018-04-15] MEDS: Trimethobenzamide CAP* 300 MG PO SCH ×4 (08:53→21:24)
[2018-04-15] MEDS: CMC:Zonisamide (NF) 50 MG CAP PO SCH ×2 (08:53→21:24)
[2018-04-15 08:56] LABS: ABS Basophils 0.1 10^3/ul (0-0.2); ABS Eosinophils 0.1 10^3/ul (0-0.6); ABS Lymphocytes 3.1 10^3/ul (1.0-4.8); ABS Monocytes 0.8 10^3/ul (0-0.8); ABS Neutrophils 5.9 10^3/ul (1.5-7.7); ABS Nucleated RBC 0 10^3/ul; Eosinophil % 1.1 % (0-6); Lymphocyte % 30.9 % (25-47); Nucleated Red Blood Cells % 0.3
[2018-04-15] MEDS: D5W 1/2 NS KCl 20 Meq 1000 ML* 1,000 ML IV SCH (09:44)
[2018-04-15] MEDS ORDERED: Amoxicillin/Clavulanate TAB* 875 MG PO SCH (12:00)
[2018-04-15] MEDS: Ciprofloxacin TAB* 500 MG PO SCH ×2 (12:53→21:23)
[2018-04-15] MEDS: Acetaminophen TAB* 325 MG PO PRN (16:25)
--- NOTE | 2018-04-15 17:28 | PN ---
Subjective Date of Service: 04/15/18 Interval History: developed itching and burning at site of the IV cipro this AM(stopped), attests it happened night prior as well. Pt "feeling terrible", hungry(was npo for ~48 hours). tolerated diet advancement. complaint of pounding HUITRON and sinus pressure. Hx of sinus surgery. Denies ear pain. Compliant of continued abdominal discomfort. afebrile procalcitonin elevated. attested to pcn allergy of fevers and convulsions as a child. Objective Active Medications: Acetaminophen (Tylenol Tab*) 650 mg PO Q4H PRN PRN Reason: PAIN Last Admin: 04/15/18 16:25 Dose: 650 mg Alprazolam (Xanax Tab*) 1 mg PO QID [facility] Last Admin: 04/15/18 12:54 Dose: Not Given Baclofen (Lioresal Tab*) 20 mg PO BID [facility] Last Admin: 04/15/18 08:50 Dose: 20 mg Ciprofloxacin (Cipro Tab*) 500 mg PO Q12HR [facility] Last Admin: 04/15/18 12:53 Dose: 500 mg Ferrous Sulfate (Ferrous Sulfate Tab*) 325 mg PO DAILY [facility] Last Admin: 04/15/18 08:51 Dose: 325 mg Heparin Sodium (Porcine) (Heparin Vial(*)) 5,000 units SUBCUT Q8HR [facility] Last Admin: 04/15/18 13:57 Dose: Not Given Metronidazole/Sodium Chloride (Flagyl 500 Mg Ivpb*) 500 mg in 100 mls @ 100 mls /hr IVPB Q8H [facility] Lisinopril (Prinivil Tab*) 10 mg PO DAILY [facility] Last Admin: 04/15/18 08:51 Dose: 10 mg Omeprazole (Prilosec Cap*) 20 mg PO DAILY@0600 [facility] Last Admin: 04/15/18 06:08 Dose: 20 mg Ondansetron HCl (Zofran Odt Tab*) 4 mg PO Q6H PRN PRN Reason: n/v Last Admin: 04/15/18 16:25 Dose: 4 mg Oxycodone HCl (Roxycodone Tab*) 5 mg PO Q4H PRN PRN Reason: PAIN Last Admin: 04/15/18 13:02 Dose: 5 mg Polyethylene Glycol/Electrolytes (Miralax*) 17 gm PO DAILY PRN PRN Reason: CONSTIPATION Senna (Senokot Tab*) 2 tab PO BEDTIME PRN PRN Reason: CONSTIPATION Sertraline HCl (Zoloft*) 100 mg PO DAILY [facility] Last Admin: 04/15/18 08:52 Dose: 100 mg Trimethobenzamide HCl (Tigan Cap*) 300 mg PO QID [facility] Last Admin: 04/15/18 12:53 Dose: 300 mg Zonisamide (Zonegran (Nf)) 300 mg PO BID [facility] Last Admin: 04/15/18 08:53 Dose: 300 mg Vital Signs - 8 hr 04/15/18 04/15/18 04/15/18 11:38 11:52 12:56 Temperature 99.0 F Pulse Rate 59 Respiratory 16 16 16 Rate Blood Pressure 137/78 (mmHg) O2 Sat by Pulse 95 Oximetry 04/15/18 04/15/18 04/15/18 13:02 14:34 15:10 Temperature Pulse Rate Respiratory 16 16 16 Rate Blood Pressure (mmHg) O2 Sat by Pulse Oximetry 04/15/18 15:34 Temperature 98.2 F Pulse Rate 55 Respiratory 16 Rate Blood Pressure 135/74 (mmHg) O2 Sat by Pulse 95 Oximetry Oxygen Devices in Use Now: None Appearance: no acute distress but uncomfortable appearing. Eyes: No Scleral Icterus, PERRLA Ears/Nose/Mouth/Throat: NL Teeth, Lips, Gums, Mucous Membranes Moist Neck: NL Appearance and Movements; NL JVP, Trachea Midline Respiratory: Symmetrical Chest Expansion and Respiratory Effort, Clear to Auscultation Cardiovascular: NL Sounds; No Murmurs; No JVD, RRR Abdominal: - - soft, epigastric tenderness. no distention, no rebound or guarding. no chow's sign. . Extremities: No Edema, No Clubbing, Cyanosis Skin: No Rash or Ulcers Neurological: Alert and Oriented x 3, NL Sensation Nutrition: Taking PO's Result Diagrams: 04/15/18 06:14 04/15/18 06:14 Additional Lab and Data: Laboratory Results - last 24 hr 04/15/18 04/15/18 04/15/18 06:14 06:14 06:14 WBC 9.9 RBC 3.76 L Hgb 10.8 L Hct 33 L MCV 88 MCH 29 MCHC 33 RDW 25 H Plt Count 333 MPV 8.7 Neut % (Auto) 59.2 Lymph % (Auto) 30.9 Cross % (Auto) 7.9 H Eos % (Auto) 1.1 Baso % (Auto) 0.9 Absolute Neuts (auto) 5.9 Absolute Lymphs (auto) 3.1 Absolute Monos (auto) 0.8 Absolute Eos (auto) 0.1 Absolute Basos (auto) 0.1 Absolute Nucleated RBC 0 Nucleated RBC % 0.3 Anisocytosis 2+ Acanthocytes (Spur) 2+ Sodium 138 Potassium 3.1 L Chloride 106 Carbon Dioxide 21 L Anion Gap 11 BUN 18 Creatinine 0.74 Est GFR ( Amer) 95.3 Est GFR (Non-Af Amer) 78.8 BUN/Creatinine Ratio 24.3 H Glucose 75 Calcium 8.9 C-Reactive Protein 124.96 H Lipase 33 Procalcitonin 1.2 H Microbiology and Other Data: Microbiology 04/14/18 15:30 Gastric Antrum CLOtest - Final 04/13/18 06:47 Blood Venous Aerobic Blood Culture - Preliminary No Growth Day 2 04/13/18 06:47 Blood Venous Anaerobic Blood Culture - Preliminary No Growth Day 2 Assess/Plan/Problems-Billing Assessment: 63 yo female PMH fibromyalgia, PTSD, chronic pain, recent microcytic anemia, s/ p splenectomy/cholecystectomy p/w HUITRON, fevers. s/p EGD 04/14 with bleeding gastric fundus and medication caked esophagus. Cipro/flagyl. Plan for [facility] - Patient Problems (1) Fever Current Visit: Yes Status: Acute Code(s): R50.9 - FEVER, UNSPECIFIED SNOMED Code(s): 864302574 Comment: Leukocytosis(resolved), high CRP recently. Continue cipro/metro but switch to po given itching with IV cipro. Blood C&S x 1 on 04/13 no growth day 2. CRP 125 up from 85 on 04/13 but down from 213 on 04/03. Pt concerned about sinusitis. Note CT brain 04/12 at [place] was unremarkable, including the visulaized sinuses. (2) Anemia Current Visit: Yes Status: Acute Code(s): D64.9 - ANEMIA, UNSPECIFIED SNOMED Code(s): 026956855 Comment: Records received from [facility]. Note nl iron studies, B12, folate 2017. EGD with bleeding gastirc fundus. repeat stool occult. continue omeprazole. continue iron supplements but spread to MWF on d/cper GI (3) Nausea Current Visit: Yes Status: Acute Code(s): R11.0 - NAUSEA SNOMED Code(s): 557050834 Comment: Continue scheduled trimethobenzamide. (4) Spinal stenosis Current Visit: Yes Status: Acute Code(s): M48.00 - SPINAL STENOSIS, SITE UNSPECIFIED SNOMED Code(s): 30519695 Comment: Oxycodone prn. Avoid APAP while evaluating her fever. (5) Abdominal pain Current Visit: No Status: Acute Priority: High Code(s): R10.9 - UNSPECIFIED ABDOMINAL PAIN SNOMED Code(s): 41183029 Comment: 2/ gastritis (6) Chronic pain Current Visit: No Status: Acute Code(s): G89.29 - OTHER CHRONIC PAIN SNOMED Code(s): 44924315 Comment: Continue home hydrocodone/apap. (7) DVT prophylaxis Current Visit: No Status: Acute Code(s): YJU8413 - SNOMED Code(s): 572680154 Comment: Heparin SQ. (8) Full code status Current Visit: No Status: Acute Code(s): Z78.9 - OTHER SPECIFIED HEALTH STATUS SNOMED Code(s): 571560487 (9) Anxiety Current Visit: No Status: Chronic Code(s): F41.9 - ANXIETY DISORDER, UNSPECIFIED SNOMED Code(s): 25754833 Comment: Continue sertraline and zonisamide (10) HTN (hypertension) Current Visit: No Status: Chronic Code(s): I10 - ESSENTIAL (PRIMARY) HYPERTENSION SNOMED Code(s): 87143189 Comment: Continue lisinopri 10mg Status and Disposition: medicine inpatient planned to [facility]
[2018-04-16] MEDS: Ondansetron ODT TAB* 4 MG PO PRN ×2 (03:04→09:45)
[2018-04-16] MEDS: oxyCODONE TAB* 5 MG TAB PO PRN ×3 (03:04→22:46)
[2018-04-16] MEDS: metroNIDAZOLE IV 500 MG/100ML* 500 MG/100 ML BAG IVPB SCH ×3 (03:05→21:17)
[2018-04-16] MEDS: Heparin VIAL(*) 5000 UNITS/ML VIAL (FIVE THOUSAND) SUBCUT SCH ×3 (05:25→20:45)
[2018-04-16] MEDS: Omeprazole CAP* 20 MG PO SCH (05:52)
[2018-04-16] MEDS: Sertraline* 100 MG TAB PO SCH (09:32)
[2018-04-16] MEDS: Lisinopril TAB* 10 MG PO SCH (09:32)
[2018-04-16] MEDS: Ciprofloxacin TAB* 500 MG PO SCH ×2 (09:32→20:45)
[2018-04-16] MEDS: Ferrous Sulfate TAB* 325 MG PO SCH (09:32)
[2018-04-16] MEDS: CMC:Zonisamide (NF) 50 MG CAP PO SCH ×2 (09:46→20:44)
[2018-04-16] MEDS: ALPRAZolam TAB* 0.5 MG PO SCH ×2 (09:47→13:00)
[2018-04-16 10:16] LABS: ABS Basophils 0 10^3/ul (0-0.2); ABS Eosinophils 0.1 10^3/ul (0-0.6); ABS Monocytes 0.5 10^3/ul (0-0.8); ABS Neutrophils 5.4 10^3/ul (1.5-7.7); ABS Nucleated RBC 0 10^3/ul; Eosinophil % 1.7 % (0-6); Hematocrit 35 % (35-47); Hemoglobin 11.6 g/dl (12.0-16.0); Lymphocyte % 24.4 % (25-47); Mean Corpuscular HGB Conc 33 g/dl (31-36); Mean Corpuscular Hemoglobin 29 pg (27-31); Mean Corpuscular Volume 86 fL (80-97); Mean Platelet Volume 8.4 um3 (7.4-10.4); Nucleated Red Blood Cells % 0.3; Platelet Count 372 10^3/ul (150-450); Red Blood Count 4.07 10^6/ul (4.00-5.40); Red Cell Distribution Width 24 % (10.5-15); White Blood Count 8.1 10^3/ul (3.5-10.8)
[2018-04-16] MEDS: Baclofen TAB* 20 MG PO SCH ×2 (10:28→20:45)
[2018-04-16] MEDS: Trimethobenzamide CAP* 300 MG PO SCH ×2 (10:28→13:19)
[2018-04-16 10:33] LABS: EGFR Non-African American 75.2 (>60)
[2018-04-16] MEDS ORDERED: Magnesium Sulfate 2 GM IV* 2 GM/50 ML BAG IVPB ONE (11:26)
[2018-04-16] MEDS: Potassium Chloride LIQUID* 20 MEQ PACKET PO SCH ×2 (12:06→12:17)
[2018-04-16] MEDS: KCL 20 MEQ/100 ML IVPREMIX* 20 MEQ/100 ML BAG IV SCH ×3 (13:29→21:16)
[2018-04-16] MEDS ORDERED: Ondansetron ODT TAB* 4 MG SL PRN (16:49)
[2018-04-16] MEDS: Sucralfate TAB* 1 GM PO SCH ×2 (17:16→20:45)
--- NOTE | 2018-04-16 17:28 | PN ---
Subjective Date of Service: 04/16/18 Interval History: Nausea and headache much better since 04/12 but still significant concerns for patient. Abdominal pain continues but infrequent use of oxy. No BM since admission. Took a few steps with PT, rec of rehab. Objective Active Medications: Acetaminophen (Tylenol Tab*) 650 mg PO Q4H PRN PRN Reason: PAIN Last Admin: 04/15/18 16:25 Dose: 650 mg Baclofen (Lioresal Tab*) 20 mg PO BID [facility] Last Admin: 04/16/18 10:28 Dose: 20 mg Ciprofloxacin (Cipro Tab*) 500 mg PO Q12HR [facility] Last Admin: 04/16/18 09:32 Dose: 500 mg Ferrous Sulfate (Ferrous Sulfate Tab*) 325 mg PO DAILY [facility] Last Admin: 04/16/18 09:32 Dose: 325 mg Heparin Sodium (Porcine) (Heparin Vial(*)) 5,000 units SUBCUT Q8HR [facility] Last Admin: 04/16/18 13:40 Dose: Not Given Metronidazole/Sodium Chloride (Flagyl 500 Mg Ivpb*) 500 mg in 100 mls @ 100 mls /hr IVPB Q8H [facility] Last Admin: 04/16/18 10:05 Dose: 100 mls/hr Potassium Chloride (Potassium Chloride 20 Meq/100 Ml Ivpremix*) 20 meq in 100 mls @ 50 mls/hr IV Q2H [facility] Stop: 04/16/18 18:59 Last Admin: 04/16/18 17:13 Dose: 50 mls/hr Lisinopril (Prinivil Tab*) 10 mg PO DAILY [facility] Last Admin: 04/16/18 09:32 Dose: 10 mg Omeprazole (Prilosec Cap*) 20 mg PO DAILY@0600 [facility] Last Admin: 04/16/18 05:52 Dose: 20 mg Ondansetron HCl (Zofran Odt Tab*) 4 mg SL Q6H PRN PRN Reason: NAUSEA/VOMITING Oxycodone HCl (Roxycodone Tab*) 5 mg PO Q4H PRN PRN Reason: PAIN Last Admin: 04/16/18 03:04 Dose: 5 mg Polyethylene Glycol/Electrolytes (Miralax*) 17 gm PO DAILY PRN PRN Reason: CONSTIPATION Prochlorperazine (Compazine Tab*) 10 mg PO Q6HR PRN PRN Reason: NAUSEA/VOMITING Senna (Senokot Tab*) 2 tab PO BEDTIME PRN PRN Reason: CONSTIPATION Sertraline HCl (Zoloft*) 100 mg PO DAILY [facility] Last Admin: 04/16/18 09:32 Dose: 100 mg Sucralfate (Carafate*) 1 gm PO QID [facility] Last Admin: 04/16/18 17:16 Dose: 1 gm Zonisamide (Zonegran (Nf)) 300 mg PO BID [facility] Last Admin: 04/16/18 09:46 Dose: 300 mg Vital Signs - 8 hr 04/16/18 12:13 Temperature 99.1 F Pulse Rate 58 Respiratory 18 Rate Blood Pressure 138/76 (mmHg) O2 Sat by Pulse 96 Oximetry Oxygen Devices in Use Now: None Appearance: NAD, seems calmer Eyes: No Scleral Icterus, PERRLA Neck: NL Appearance and Movements; NL JVP, Trachea Midline Respiratory: Symmetrical Chest Expansion and Respiratory Effort, Clear to Auscultation Cardiovascular: NL Sounds; No Murmurs; No JVD, RRR Abdominal: - - soft, nondistened, tender in epigastric and LLQ. no rebound or guarding. Extremities: No Edema, No Clubbing, Cyanosis, - - skin dry. Skin: No Rash or Ulcers Neurological: Alert and Oriented x 3, NL Sensation, NL Muscle Strength and Tone Nutrition: Taking PO's Result Diagrams: 04/16/18 09:55 04/16/18 09:55 Additional Lab and Data: Laboratory Results - last 24 hr 04/16/18 04/16/18 09:55 09:55 WBC 8.1 RBC 4.07 Hgb 11.6 L Hct 35 MCV 86 MCH 29 MCHC 33 RDW 24 H Plt Count 372 MPV 8.4 Neut % (Auto) 66.8 Lymph % (Auto) 24.4 L [place] % (Auto) 6.5 Eos % (Auto) 1.7 Baso % (Auto) 0.6 Absolute Neuts (auto) 5.4 Absolute Lymphs (auto) 2.0 Absolute Monos (auto) 0.5 Absolute Eos (auto) 0.1 Absolute Basos (auto) 0 Absolute Nucleated RBC 0 Nucleated RBC % 0.3 Sodium 138 Potassium 2.9 L Chloride 105 Carbon Dioxide 24 Anion Gap 9 BUN 16 Creatinine 0.77 Est GFR ( Amer) 91.0 Est GFR (Non-Af Amer) 75.2 BUN/Creatinine Ratio 20.8 H Glucose 191 H Calcium 8.9 Magnesium 1.8 L Microbiology and Other Data: Microbiology 04/13/18 06:47 Blood Venous Aerobic Blood Culture - Preliminary No Growth Day 3 04/13/18 06:47 Blood Venous Anaerobic Blood Culture - Preliminary No Growth Day 3 04/14/18 15:30 Gastric Antrum CLOtest - Final Assess/Plan/Problems-Billing Assessment: 63 yo female PMH fibromyalgia, PTSD, chronic pain, recent microcytic anemia, s/ p splenectomy/cholecystectomy p/w HUITRON, fevers, nausea and abdominal pain. s/p EGD 04/14 with bleeding gastric fundus and medication caked esophagus. Cipro/ flagyl. Plan for VIRAL before can return to [facility] - Patient Problems (1) Fever Current Visit: Yes Status: Acute Code(s): R50.9 - FEVER, UNSPECIFIED SNOMED Code(s): 667603711 Comment: Leukocytosis(resolved), high CRP recently. Continue cipro/metro po Blood C&S NGTD. CRP 125 up from 85 on 04/13 but down from 213 on 04/03. Repeat tomorrow. Pt concerned about sinusitis. Note CT brain 04/12 at [place] was unremarkable, including the visulaized sinuses. (2) Anemia Current Visit: Yes Status: Acute Code(s): D64.9 - ANEMIA, UNSPECIFIED SNOMED Code(s): 123323416 Comment: Records received from [facility]. Note nl iron studies, B12, folate 2017. EGD with bleeding gastirc fundus. repeat stool occult. continue omeprazole. Her insurance would not conver protonix continue iron supplements but spread to [facility] on d/c per GI (3) Nausea Current Visit: Yes Status: Acute Code(s): R11.0 - NAUSEA SNOMED Code(s): 007696312 Comment: switch back to zofran with added prn compazine. stop trimethobenzamide. adding carafate seems improved as po intake increases (4) Spinal stenosis Current Visit: Yes Status: Acute Code(s): M48.00 - SPINAL STENOSIS, SITE UNSPECIFIED SNOMED Code(s): 57370922 Comment: Oxycodone prn. Avoid APAP while evaluating her fever. (5) Abdominal pain Current Visit: No Status: Acute Priority: High Code(s): R10.9 - UNSPECIFIED ABDOMINAL PAIN SNOMED Code(s): 73293502 Comment: 2/2 gastritis adding carafate continue prilosec. (6) Chronic pain Current Visit: No Status: Acute Code(s): G89.29 - OTHER CHRONIC PAIN SNOMED Code(s): 08482738 Comment: Continue home hydrocodone/apap. (7) DVT prophylaxis Current Visit: No Status: Acute Code(s): SWN5498 - SNOMED Code(s): 542466749 Comment: Heparin SQ. (8) Full code status Current Visit: No Status: Acute Code(s): Z78.9 - OTHER SPECIFIED HEALTH STATUS SNOMED Code(s): 165475467 (9) Anxiety Current Visit: No Status: Chronic Code(s): F41.9 - ANXIETY DISORDER, UNSPECIFIED SNOMED Code(s): 98388762 Comment: Continue sertraline also on zonisamide no longer taking xanax for several months, stopping order. (10) HTN (hypertension) Current Visit: No Status: Chronic Code(s): I10 - ESSENTIAL (PRIMARY) HYPERTENSION SNOMED Code(s): 30421478 Comment: Continue lisinopri 10mg Status and Disposition: medicine inpatient planned to [facility], waiting placement.
[2018-04-16] MEDS ORDERED: Prochlorperazine TAB* 10 MG PO SCH (18:00)
[2018-04-16] MEDS: Docusate CAP* 100 MG PO SCH (18:07)
[2018-04-16] MEDS: Prochlorperazine TAB* 10 MG PO PRN (18:08)
[2018-04-16] MEDS: Senna TAB PO SCH (20:44)
[2018-04-16] MEDS ORDERED: KCL 20 MEQ/100 ML IVPREMIX* 20 MEQ/100 ML BAG IV ONE (21:00)
[2018-04-17] MEDS: oxyCODONE TAB* 5 MG TAB PO PRN ×4 (03:05→22:11)
[2018-04-17] MEDS: metroNIDAZOLE IV 500 MG/100ML* 500 MG/100 ML BAG IVPB SCH ×3 (03:05→18:27)
[2018-04-17] MEDS: Prochlorperazine TAB* 10 MG PO PRN ×2 (03:21→10:17)
[2018-04-17] MEDS: Omeprazole CAP* 20 MG PO SCH (06:14)
[2018-04-17] MEDS: Heparin VIAL(*) 5000 UNITS/ML VIAL (FIVE THOUSAND) SUBCUT SCH ×3 (06:18→22:09)
[2018-04-17 07:31] LABS: EGFR Non-African American 85.4 (>60)
[2018-04-17] MEDS: Docusate CAP* 100 MG PO SCH (09:54)
[2018-04-17] MEDS: Baclofen TAB* 20 MG PO SCH ×2 (09:56→22:08)
[2018-04-17] MEDS: Sertraline* 100 MG TAB PO SCH (09:56)
[2018-04-17] MEDS: Sucralfate TAB* 1 GM PO SCH ×4 (09:57→22:08)
[2018-04-17] MEDS: Ciprofloxacin TAB* 500 MG PO SCH ×2 (09:57→22:08)
[2018-04-17] MEDS: Ferrous Sulfate TAB* 325 MG PO SCH (09:57)
[2018-04-17] MEDS: Lisinopril TAB* 10 MG PO SCH (09:57)
[2018-04-17] MEDS: CMC:Zonisamide (NF) 50 MG CAP PO SCH ×2 (09:58→21:59)
[2018-04-17] MEDS ORDERED: Magnesium CITRATE* 300 ML BTL PO ONE (14:57)
[2018-04-17] MEDS ORDERED: Ondansetron ODT TAB* 4 MG PO PRN (15:57)
--- NOTE | 2018-04-17 18:26 | PN ---
Subjective Date of Service: 04/17/18 Interval History: patient with largely resolved HUITRON. eating better. prefers zofran po instead of SL some epigastric pain still with palpation. accepted bed to [facility] tomorrow. Objective Active Medications: Acetaminophen (Tylenol Tab*) 650 mg PO Q4H PRN PRN Reason: PAIN Last Admin: 04/15/18 16:25 Dose: 650 mg Baclofen (Lioresal Tab*) 20 mg PO BID [facility] Last Admin: 04/17/18 09:56 Dose: 20 mg Ciprofloxacin (Cipro Tab*) 500 mg PO Q12HR [facility] Last Admin: 04/17/18 09:57 Dose: 500 mg Docusate Sodium (Colace Cap*) 100 mg PO DAILY [facility] Last Admin: 04/17/18 09:54 Dose: 100 mg Ferrous Sulfate (Ferrous Sulfate Tab*) 325 mg PO DAILY [facility] Last Admin: 04/17/18 09:57 Dose: 325 mg Heparin Sodium (Porcine) (Heparin Vial(*)) 5,000 units SUBCUT Q8HR [facility] Last Admin: 04/17/18 12:55 Dose: Not Given Metronidazole/Sodium Chloride (Flagyl 500 Mg Ivpb*) 500 mg in 100 mls @ 100 mls /hr IVPB Q8H [facility] Last Admin: 04/17/18 09:53 Dose: 100 mls/hr Lisinopril (Prinivil Tab*) 5 mg PO DAILY [facility] Omeprazole (Prilosec Cap*) 20 mg PO DAILY@0600 [facility] Last Admin: 04/17/18 06:14 Dose: 20 mg Ondansetron HCl (Zofran Odt Tab*) 4 mg PO Q6H PRN PRN Reason: NAUSEA Oxycodone HCl (Roxycodone Tab*) 5 mg PO Q4H PRN PRN Reason: PAIN Last Admin: 04/17/18 15:44 Dose: 5 mg Polyethylene Glycol/Electrolytes (Miralax*) 17 gm PO DAILY PRN PRN Reason: CONSTIPATION Prochlorperazine (Compazine Tab*) 10 mg PO Q6HR PRN PRN Reason: NAUSEA/VOMITING Last Admin: 04/17/18 10:17 Dose: 10 mg Senna (Senokot Tab*) 2 tab PO BEDTIME [facility] Last Admin: 04/16/18 20:44 Dose: 2 tab Sertraline HCl (Zoloft*) 100 mg PO DAILY [facility] Last Admin: 04/17/18 09:56 Dose: 100 mg Sucralfate (Carafate*) 1 gm PO QID [facility] Last Admin: 04/17/18 13:06 Dose: 1 gm Zonisamide (Zonegran (Nf)) 300 mg PO BID [facility] Last Admin: 04/17/18 09:58 Dose: 300 mg Vital Signs - 8 hr 04/17/18 04/17/18 04/17/18 11:13 12:59 15:44 Temperature 98.2 F Pulse Rate 62 Respiratory 16 16 16 Rate Blood Pressure 108/58 (mmHg) O2 Sat by Pulse 97 Oximetry Oxygen Devices in Use Now: None Appearance: NAD Eyes: No Scleral Icterus, PERRLA Ears/Nose/Mouth/Throat: NL Teeth, Lips, Gums Neck: NL Appearance and Movements; NL JVP, Trachea Midline Respiratory: Symmetrical Chest Expansion and Respiratory Effort, Clear to Auscultation Cardiovascular: NL Sounds; No Murmurs; No JVD, RRR Abdominal: - - tender epigastric Extremities: No Edema, No Clubbing, Cyanosis Skin: No Rash or Ulcers, No Nodules or Sclerosis, - - dry skin Nutrition: Taking PO's Result Diagrams: 04/16/18 09:55 04/17/18 06:48 Additional Lab and Data: Laboratory Results - last 24 hr 04/17/18 06:48 Sodium 140 Potassium 3.5 Chloride 108 Carbon Dioxide 26 Anion Gap 6 BUN 12 Creatinine 0.69 Est GFR ( Amer) 103.3 Est GFR (Non-Af Amer) 85.4 BUN/Creatinine Ratio 17.4 Glucose 104 H Calcium 8.8 Magnesium 2.1 C-Reactive Protein 34.57 H Microbiology and Other Data: Microbiology 04/13/18 06:47 Blood Venous Aerobic Blood Culture - Preliminary No Growth Day 4 04/13/18 06:47 Blood Venous Anaerobic Blood Culture - Preliminary No Growth Day 4 04/14/18 15:30 Gastric Antrum CLOtest - Final Assess/Plan/Problems-Billing Assessment: 63 yo female PMH fibromyalgia, PTSD, chronic pain, recent microcytic anemia, s/ p splenectomy/cholecystectomy p/w HUITRON, fevers, nausea and abdominal pain. s/p EGD / with bleeding gastric fundus and medication caked esophagus. Cipro/ flagyl. Plan for VIRAL before can return to [facility] - Patient Problems (1) Fever Current Visit: Yes Status: Acute Code(s): R50.9 - FEVER, UNSPECIFIED SNOMED Code(s): 811776095 Comment: resolved. Leukocytosis(resolved), high CRP recently but down to 34.5. Continue cipro/ metro po Blood C&S NGTD. CRP down to 34.5 Pt concerned about sinusitis. Note CT brain 04/12 at [place] was unremarkable, including the visulaized sinuses. (2) Anemia Current Visit: Yes Status: Acute Code(s): D64.9 - ANEMIA, UNSPECIFIED SNOMED Code(s): 214787676 Comment: Records received from [facility]. Note nl iron studies, B12, folate 2017. EGD with bleeding gastirc fundus. repeat stool occult. continue omeprazole. Her insurance would not conver protonix continue iron supplements but spread to [facility] on d/c per GI (3) Nausea Current Visit: Yes Status: Acute Code(s): R11.0 - NAUSEA SNOMED Code(s): 567676635 Comment: switch back to zofran (but back to po tabs) with added prn compazine. continue carafate seems improved as po intake increases (4) Spinal stenosis Current Visit: Yes Status: Acute Code(s): M48.00 - SPINAL STENOSIS, SITE UNSPECIFIED SNOMED Code(s): 48100722 Comment: Oxycodone prn. (5) Abdominal pain Current Visit: No Status: Acute Priority: High Code(s): R10.9 - UNSPECIFIED ABDOMINAL PAIN SNOMED Code(s): 38314545 Comment: /2 gastritis continue carafate continue prilosec. bowel regimen. (6) DVT prophylaxis Current Visit: No Status: Acute Code(s): QBH4166 - SNOMED Code(s): 563958251 Comment: Heparin SQ. (7) Full code status Current Visit: No Status: Acute Code(s): Z78.9 - OTHER SPECIFIED HEALTH STATUS SNOMED Code(s): 612805037 (8) Anxiety Current Visit: No Status: Chronic Code(s): F41.9 - ANXIETY DISORDER, UNSPECIFIED SNOMED Code(s): 65019483 Comment: Continue sertraline also on zonisamide no longer taking xanax for several months, stopping order. (9) HTN (hypertension) Current Visit: No Status: Chronic Code(s): I10 - ESSENTIAL (PRIMARY) HYPERTENSION SNOMED Code(s): 25823831 Comment: reduced her lisinopri from 10mg to 5mg as SBP 110s some positional nausea. Status and Disposition: medicine inpatient planned to [facility] on 04/18
[2018-04-17] MEDS: Senna TAB PO SCH (22:08)
[2018-04-17] MEDS: metroNIDAZOLE TAB* 250 MG PO SCH (22:09)
[2018-04-17] MEDS ORDERED: ZONISAMIDE 25 MG CAPSULE PO ONE (23:00)
[2018-04-18] MEDS: Omeprazole CAP* 20 MG PO SCH (05:58)
[2018-04-18] MEDS: oxyCODONE TAB* 5 MG TAB PO PRN ×2 (05:58→10:00)
[2018-04-18] MEDS: Heparin VIAL(*) 5000 UNITS/ML VIAL (FIVE THOUSAND) SUBCUT SCH (06:00)
[2018-04-18 08:39] VITALS: BP 140/85
[2018-04-18] MEDS ORDERED: Lisinopril TAB* 10 MG PO SCH (09:00)
[2018-04-18] MEDS ORDERED: ZONISAMIDE 100 MG PO SCH (09:30)
[2018-04-18] MEDS: Sucralfate TAB* 1 GM PO SCH (09:50)
[2018-04-18] MEDS: Baclofen TAB* 20 MG PO SCH (09:57)
[2018-04-18] MEDS: Prochlorperazine TAB* 10 MG PO PRN (09:57)
[2018-04-18] MEDS: metroNIDAZOLE TAB* 250 MG PO SCH (09:58)
[2018-04-18] MEDS: Sertraline* 100 MG TAB PO SCH (09:59)
[2018-04-18] MEDS: Docusate CAP* 100 MG PO SCH (09:59)
[2018-04-18] MEDS: Ferrous Sulfate TAB* 325 MG PO SCH (10:01)
[2018-04-18] MEDS: Ciprofloxacin TAB* 500 MG PO SCH (10:02)
--- NOTE | 2018-04-18 12:25 | DS ---
DISCHARGE SUMMARY: DATE OF ADMISSION: 04/13/18 DATE OF DISCHARGE: 04/18/18 ADMITTING PROVIDER: Jose Longo MD. ATTENDING PHYSICIAN ON DAY OF DISCHARGE: Jose Aguero MD. PRIMARY CARE PROVIDER: Dr. Parker. CHIEF COMPLAINT: Fever, headache; nausea; and elevated troponin at [facility] initiating transfer. PRINCIPAL DIAGNOSES: Severe gastritis and distal esophagitis secondary to medication caking; seriously suspected intraabdominal infection; headache; elevated troponin. HISTORY OF PRESENT ILLNESS AND HOSPITAL COURSE: Ms. Shaikh is a 63-year-old female with a past medical history of fibromyalgia, PTSD, anemia, duodenal ulcer , GERD, recent upper GI bleed, hypertension, neurogenic bladder, right bundle branch block, spinal stenosis, splenic rupture, who reported a sudden onset of headache, fever, chills, nausea and diaphoresis, required a transfer around noon and she presented to [facility], she was found to have elevated troponin, which peaked at 0.12, (initially was 0.099. She was therefore transferred to [facility] Emergency Room. Her EKG demonstrated no significant changes from 2016 with evidence of right bundle branch block and left anterior fascicular block and her troponins were flat. She met SIRS criteria and had some abdominal pain. She was started on Cipro and Flagyl. She had a CT abdomen and pelvis without contrast, which demonstrated minimal infiltrative or atelectatic changes in the right lower lobe, coronary artery calcifications, cholecystectomy, pneumobilia, nonobstructive right renal calculus, small hiatal hernia and degenerative changes of the lumbar spine. Given her recent upper GI bleed and abdominal pain, Dr. White was consulted and performed an EGD. This demonstrated some adherent caking of medication debris in the distal esophagus, small to moderate hiatal hernia and moderate to severe gastritis with bleeding from the gastric fundus and high up in the cardia. She was advised to drink more water and crush her pills or use as elixirs and it was recommended to take Protonix. The patient did not participate, was amotivational to participate and get off bed and given that she was coming from the assisted living facility ([facility]), she was recommended to get further rehab at a retirement facility and [facility] has accepted her. Further workup also included elevated CRP which peaked at 125 on 04/15/18 and was 35 on the day prior to discharge. She had elevated procalcitonin at 1.2. Her fevers peaked here at 101.1 on hospital day #1. She is being continued on a 10-day course of Cipro and Flagyl. She did start to develop some itching, with start of IV Flagyl and that was changed to p.o. at that time. Dr. White recommended that her iron supplementation could spread out to Friday, Friday and Friday instead of daily and her hemoglobin on 04/16/18 was 11.6. She initially had a leukocytosis of 14.9 that resolved. Lipase was 33. She had issues with nausea, which resolved as she began to eat more food and with p.o. Zofran. Of note, she did not tolerate the sublingual formulation. She still has some epigastric tenderness to palpation. She was started on Carafate. She should follow up with GI. She had a negative CLOtest for H. pylori. Blood cultures were negative. DISCHARGE MEDICATIONS: 1. Baclofen 20 mg p.o. b.i.d. 2. Ciprofloxacin 500 mg p.o. q.12 hours for five more days. 3. Docusate 100 mg p.o. daily (new). 4. Lisinopril 5 mg daily (new, reduced from 10). 5. Flagyl 500 mg p.o. t.i.d. for five more days. 6. Zofran 4 mg p.o. q.6 hours p.r.n. 7. Oxycodone 5 mg p.o. q.6 hours p.r.n. (new) changed from previous. 8. Hydrocodone/acetaminophen 10/325 q.6 hours p.r.n. 9. MiraLAX 17 g p.o. daily. 10. Senna two tabs p.o. at bedtime. 11. Sertraline 100 mg p.o. daily. 12. Zonisamide 300 mg p.o. b.i.d. 13. Tylenol 325 mg p.o. q.6 hours p.r.n. 14. Potassium chloride 20 mEq p.o. daily (decreased from twice a day). 15. Protonix 40 mg p.o. daily (new, previously was on Prilosec). 16. Carafate 1 g p.o. 4 times daily (new). DIET: Heart healthy. The patient should be encouraged to drink water with pills or use elixir/liquid if alterative formulary exists. ACTIVITY LEVEL: No restrictions FOLLOWUP: To follow up with her primary care provider, Dr. Parker after discharge back to [facility]. She will be seen by [facility] physicians while there. Please note this notes serves as both discharge and admitting history and physical for [facility]. Time spent on discharge, 40 minutes. [id number]/[facility] #: [id number] [facility]
== END 2018-04-18 12:45 | DRG 378 ==
LOC: ED 02:44 → MEDTELE 05:56
PROVIDERS: ADMIT Hospitalist; ATTEND Internal Medicine
PROC: 0DB68ZX Excision of Stomach, Via Natural or Artificial Opening Endoscopic, Diagnostic (ICD-10-PCS; principal; 2018-04-14)
DX: K29.01 Acute gastritis with bleeding (principal); B15.9 Hepatitis A without hepatic coma; I45.2 Bifascicular block; K44.9 Diaphragmatic hernia without obstruction or gangrene; K20.8 Other esophagitis; B99.8 Other infectious disease; R74.8 Abnormal levels of other serum enzymes; I10 Essential (primary) hypertension; D64.9 Anemia, unspecified; M79.7 Fibromyalgia; K21.9 Gastro-esophageal reflux disease without esophagitis; K26.9 Duodenal ulcer, unspecified as acute or chronic, without hemorrhage or perforation; N31.9 Neuromuscular dysfunction of bladder, unspecified; F43.10 Post-traumatic stress disorder, unspecified; M48.00 Spinal stenosis, site unspecified; R50.9 Fever, unspecified; G89.4 Chronic pain syndrome; R51 Headache; Z79.1 Long term (current) use of non-steroidal anti-inflammatories (NSAID); Z79.899 Other long term (current) drug therapy; Z88.1 Allergy status to other antibiotic agents; Z88.5 Allergy status to narcotic agent; Z88.8 Allergy status to other drugs, medicaments and biological substances; Z87.891 Personal history of nicotine dependence; Z82.49 Family history of ischemic heart disease and other diseases of the circulatory system; Z80.0 Family history of malignant neoplasm of digestive organs
CPT/HCPCS: 36415; 74176; 80048; 80053; 83605; 83690; 83735; 84145; 84484; 85025; 85060; 85610; 85730; 86140; 87040; 87077; 88305; 88342; 93005; 93306; 99156; 99157; 99283; A9270-GY; G8978-GP-CL; G8979-GP-CI; J0744; J1200; J1644; J2175; J2250; J2270; J2765; J3010; J3475; J3480; J3490; Q0164

== ENCOUNTER → 2018-12-25 08:10 | Day surgery (SDC) | payer MEDICARE, MEDICAID ==
[~2018-12-25 08:10] MED LIST: Buffered Lidocaine 1% SYRIN* 1 ML/SYRINGE INTRADERM ONE; Lactated Ringers 1000 ML Bag* 1,000 ML IV SCH; Midazolam* 1 MG/ML 5 ML VIAL (5 MG) ONE; Propofol* 10 MG/ML 20 ML BTL ONE
[2018-12-25 10:20] VITALS: BP 163/102
--- NOTE | 2018-12-25 21:06 | PRO ---
CC: Dr. Parker * ESOPHAGOGASTRODUODENOSCOPY REPORT: DATE OF PROCEDURE: 12/25/18 INDICATION FOR PROCEDURE: Anemia, history of duodenal ulcers. MEDICATIONS GIVEN: Please see Anesthesia record. DESCRIPTION OF PROCEDURE: After the EGD procedure including the risks, benefits , and alternatives with the risks not limited to perforation, surgery, missed lesions, and/or were explained to the patient, written informed consent was obtained, IV medication was given, and a bite-block was placed between the teeth. The adult Olympus gastroscope was then inserted into the patient's oropharynx, into the tubular esophagus. At the distal esophagus, there was some mild GE junction variability, less than a centimeter. This was biopsied. There was quite a bit of residual medication residue likely sucralfate along the way, but did not obscure any views. A 3 cm hiatal hernia was appreciated from 39 to 36 cm. The scope was advanced through the lower esophageal sphincter into the stomach. In the antrum of the stomach, there was some antral -predominant gastritis. This was biopsied. In addition, a few scattered gastric polyps were sampled with biopsies. On retroflexion, the aforementioned hiatal hernia was appreciated. The scope was then advanced through the widely patent pylorus into the duodenal bulb, C-loop, and distal duodenum. These were normal in appearance. The scope was then removed from the patient. She tolerated the procedure well. She returned to the recovery room in stable condition. IMPRESSION: 1. Complete esophagogastroduodenoscopy with biopsies. 2. Mild GE junction variability, biopsied. 3. A 3 cm hiatal hernia. 4. Antral gastritis. 5. Gastric polyps. 6. No reoccurrence of ulcer. RECOMMENDATIONS: The patient has not had a colonoscopy in over 10 years. With her anemia and pain, this would be the next best step. If ongoing pain, we would consider imaging. She can follow up with Nat in the office in 4 to 8 weeks for further management. [id number]/[facility] #: [id number] KIT
== END | disposition home or self-care (01) ==
LOC: OR 08:10
PROVIDERS: ATTEND Internal Medicine Gastroenterology
DX: D64.9 Anemia, unspecified (principal); K21.0 Gastro-esophageal reflux disease with esophagitis; Z87.11 Personal history of peptic ulcer disease; I34.1 Nonrheumatic mitral (valve) prolapse; I10 Essential (primary) hypertension; F41.8 Other specified anxiety disorders
CPT/HCPCS: 87077; 88305; 88342; J2250; J2704